=== PATIENT | male | born 1960 | race Caucasian/White ===

== ENCOUNTER 2019-02-02 17:33 | Emergency (ER) | payer BC ==
--- NOTE | 2019-02-02 17:40 | PDOC ---
Rapid Medical Evaluation Medical Evaluation: I have performed a brief in-person evaluation of this patient. The patient presents with a chief complaint of: sent by PCP for facial asymmetry ; states was initially noted by his eye doctor yesterday on eval for his glaucoma; saw PCP today and was referred here; patient not sure when the asymmetry initially presented; denies numbness/tingling/weakness of extremies Pertinent physical exam findings: +slight R facial droop, forehead spared, no other gross focal deficits noted I have ordered the following: Labs, CT head The patient will proceed to the ED for further evaluation. 02/02/19 17:35
[2019-02-02 17:41] VITALS: BP 158/81; PULSE 85; TEMP 98; BMI 30.2
[2019-02-02 18:09] LABS: BASO % 0.4 % (0-2.0); EOS % 4.6 % (0-4.5); HEMATOCRIT 45.1 % (35.4-49); HEMOGLOBIN 16.1 GM/dL (11.7-16.9); LYMPH % 36.3 % (8-40); MCH 31.4 pg (25.7-33.7); MCHC 35.6 g/dl (32.0-35.9); MEAN PLT VOLUME 8.3 fl (7.5-11.1); MONO % 9.9 % (3.8-10.2); NEUT % 48.8 % (42.8-82.8); PLATELET COUNT 214 K/MM3 (134-434); RBC 5.13 M/mm3 (4.00-5.60); RDW 13.2 % (11.9-15.9)
[2019-02-02 18:35] LABS: ANION GAP 8 MMOL/L (8-16); BLOOD UREA NITROGEN 18 mg/dL (7-18); CALCIUM 8.9 mg/dL (8.5-10.1); CHLORIDE 101 mmol/L (98-107); CO2 28 mmol/L (21-32); GLUCOSE,RANDOM 103 mg/dL (74-106); POTASSIUM 4.3 mmol/L (3.5-5.1); SODIUM 136 mmol/L (136-145)
--- NOTE | 2019-02-02 19:50 | PDOC ---
Attending Attestation - HPI HPI: 02/02/19 20:14 The patient is a 58 YOM with a PMH of HTN and HLD who presents sent in by his PCP for evaluation of right sided facial drooping. Patient states he saw an eye doctor and was told he should see his PCP for evaluation of right facial droop. He also admits to an occasional tingling sensation on his right cheek. Patient also notes he has TMJ. He has had multiple injuries and trauma to his face early in life. Patient went in and saw his PCP who then told him to come to the ER. As per at bedside, patient has always had an asymmetric smile. Patient has no other complaints. The patient denies any numbness/tingling/weakness, difficulty walking, vision changes, chest pain, shortness of breath, headache and dizziness. Denies fever, chills, nausea, vomit, diarrhea and constipation. Denies dysuria, frequency, urgency and hematuria. Allergies: NKA Past surgical history: Social history: No reported PCP: Dr. Abelino Fairchild - Physicial Exam PE: 02/02/19 20:19 Agrees with resident's exam. <Kailyn Weiner - Last Filed: 02/02/19 20:38> - Resident Resident Name: Yulissa Valente - ED Attending Attestation I have performed the following: I have examined & evaluated the patient, The case was reviewed & discussed with the resident, I agree w/resident's findings & plan - Medical Decision Making 02/02/19 20:51 58-year-old male for evaluation of right-sided facial droop According to patient's family as well as patient he has had no noticeable change and has had an uneven smile for many years He is currently asymptomatic otherwise CT scan of the brain shows no acute findings EKG is sinus rhythm Patient will be discharged home with referral to neurology though based on exam 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
--- NOTE | 2019-02-02 19:52 | PDOC ---
History of Present Illness - General Chief Complaint: Facial Droop Stated Complaint: SENT HIM facial droop unknown last normal Time Seen by Provider: 02/02/19 17:36 History Source: Patient Exam Limitations: No Limitations - History of Present Illness Initial Comments: 02/02/19 19:48 Pt is a 58yo M with PMH of HTN, HLD, GERD, Glaucoma sent to ED from PMD for R sided facial droop. Pt states he went to tire repairer yesterday and was told that he has slight drooping. He went to PMD today who recommended that pt come to the ED for evaluation to rule out stroke. Pt states that his says that he has always had an asymmetric smile. Pt does not seem to think that the droop is different. Denies numbness/tingling, headaches, weakness, chest pain, sob, syncope, changes in vision, abdominal pain, n/v/d, unsteady gait. Denies history of Lyme or STDs PMD: Denisha Fairchild PMH: see hpi Meds: atorvastatin, amlodipine Allergies: nkda Past History - Past Medical History Allergies/Adverse Reactions: Allergies Allergy/AdvReac Type Severity Reaction Status Date / Time No Known Allergies Allergy Verified 02/02/19 17:41 COPD: No GI Disorders: Yes HTN: Yes Hypercholesterolemia: Yes Other medical history: glaucoma - Suicide/Smoking/Psychosocial Hx Smoking History: Never smoked Information on smoking cessation initiated: No Hx Alcohol Use: No Drug/Substance Use Hx: No Review of Systems - Review of Systems Constitutional: No: Chills, Fever, Weakness HEENTM: No: Eye Pain, Blurred Vision, Recent change in vision, Cataracts Respiratory: No: Cough, Shortness of Breath Cardiac (ROS): No: Chest Pain, Lightheadedness, Palpitations, Syncope ABD/GI: No: Constipated, Diarrhea, Nausea, Rectal Bleeding, Vomiting : No: Burning, Dysuria Musculoskeletal: No: Back Pain, Joint Pain, Muscle Pain Integumentary: No: Symptoms Reported Neurological: No: Headache, Numbness, Tingling, Tremors, Weakness, Unsteady Gait , Ataxia, Dizziness *Physical Exam - Vital Signs Last Vital Signs Temp Pulse Resp BP Pulse Ox 98 F 85 19 158/81 99 02/02/19 17:37 02/02/19 17:37 02/02/19 17:37 02/02/19 17:37 02/02/19 17:37 - Physical Exam General Appearance: Yes: Nourished, Appropriately Dressed. No: Apparent Distress HEENT: positive: EOMI, HAO, Normal ENT Inspection, Other (slight R mouth corner drooping No eyelid drooping. ) Neck: positive: Trachea midline, Supple. negative: Carotid bruit, Lymphadenopathy (R), Lymphadenopathy (L) Respiratory/Chest: positive: Lungs Clear, Normal Breath Sounds. negative: Crackles, Rales, Rhonchi, Stridor, Wheezing Cardiovascular: positive: Regular Rhythm, Regular Rate, S1, S2. negative: Edema , JVD, Murmur Vascular Pulses: Carotid (R): 2+, Carotid (L): 2+, Dorsalis-Pedis (R): 2+, Doralis-Pedis (L): 2+ Gastrointestinal/Abdominal: positive: Normal Bowel Sounds, Soft. negative: Tender Musculoskeletal: negative: CVA Tenderness Extremity: positive: Normal Capillary Refill, Pelvis Stable. 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 negative: Numbness, Sensory Deficit Moderate Sedation - Procedure Monitoring Vital Signs: Procedure Monitoring Vital Signs Temperature 98 F 02/02/19 17:37 Pulse Rate 85 02/02/19 17:37 Respiratory Rate 19 02/02/19 17:37 Blood Pressure 158/81 02/02/19 17:37 O2 Sat by Pulse Oximetry (%) 99 02/02/19 17:37 ED Treatment Course - LABORATORY CBC & Chemistry Diagram: 02/02/19 17:57 02/02/19 17:57 - ADDITIONAL ORDERS Additional order review: Laboratory Results 02/02/19 17:57 Sodium 136 Potassium 4.3 Chloride 101 Carbon Dioxide 28 Anion Gap 8 BUN 18 Creatinine 1.0 Creat Clearance w eGFR 77.30 Random Glucose 103 Calcium 8.9 02/02/19 17:57 RBC 5.13 MCV 88.0 MCHC 35.6 RDW 13.2 MPV 8.3 Neutrophils % 48.8 Lymphocytes % 36.3 Monocytes % 9.9 Eosinophils % 4.6 H Basophils % 0.4 Medical Decision Making - Medical Decision Making 02/02/19 19:51 Pt is a 58yo M with PMH of HTN, HLD, GERD, Glaucoma sent to ED from PMD for R sided facial droop. Pt states he went to tire repairer yesterday and was told that he has slight drooping. He went to PMD today who recommended that pt come to the ED for evaluation to rule out stroke. Pt states that his says that he has always had an asymmetric smile. Pt does not seem to think that the droop is different. Denies numbness/tingling, headaches, weakness, chest pain, sob, syncope, changes in vision, abdominal pain, n/v/d, unsteady gait. Denies history of Lyme or STDs Vitals: wnl PE: wnl, slight R sided mouth droop. normal neurological exam, no eyelid drooping, no excess saliva, normal cranial nerves Ddx includes but not limited to cva/tia, cummins's palsy, asymmetry labs, ct ordered by rme. wnl CT does not show infarct or bleed or midline shift ekg nsr. no benigno or depressions, no t wave inversions. pt is stable, did not notice drooping himself. per , he has had it. will dc home, given neuro f/u. 02/02/19 22:27 *DC/Admit/Observation/Transfer Diagnosis at time of Disposition: Facial droop - Discharge Dispostion Disposition: HOME Condition at time of disposition: Good Decision to Admit order: No - Referrals Referrals: Abelino Fairchild MD [Primary Care Provider] - Danyel Edgar MD [Staff Physician] - - Patient Instructions Additional Instructions: You were seen in the emergency room today for facial droop. The lab work is normal and the CT of the head was normal. I recommend that you see a neurologist. Dr. Edgar Come back to the emergency room if you have numbness, have weakness in your arms or legs, you pass out or if any new concerning symptom develops. Thank you - Post Discharge Activity
--- NOTE | 2019-02-03 10:59 | EKG ---
Test Reason : Blood Pressure : / mmHG Vent. Rate : 084 BPM Atrial Rate : 084 BPM P-R Int : 146 ms QRS Dur : 082 ms QT Int : 366 ms P-R-T Axes : 058 005 039 degrees QTc Int : 432 ms NORMAL SINUS RHYTHM NORMAL ECG NO PREVIOUS ECGS AVAILABLE Confirmed by ETHAN REYES MD ([id number]) on 02/03/2019 10:59:12 AM Referred By: Confirmed By:ETHAN REYES MD
== END 2019-02-02 20:59 | disposition home or self-care (01) ==
LOC: JER 17:33
DX: R29.810 Facial weakness (principal); I10 Essential (primary) hypertension; E78.5 Hyperlipidemia, unspecified; K21.9 Gastro-esophageal reflux disease without esophagitis
CPT/HCPCS: 36415; 70450-TC; 80048; 85025; 93005; 93010; 99283-25

== ENCOUNTER 2025-05-23 07:37 | Day surgery (SDC) | payer BC ==
[2025-05-22 15:19] VITALS: BMI 27.4
[2025-05-23 11:04] VITALS: TEMP 97.5
[2025-05-23 12:16] VITALS: PULSE 63; RESP 17
[2025-05-23 12:22] VITALS: BP 123/62
== END 2025-05-23 12:00 | disposition home or self-care (01) ==
LOC: JASU-ENDO 07:37
PROVIDERS: ATTEND Internal Medicine Gastroenterology
PROC: 0DBN8ZX Excision of Sigmoid Colon, Via Natural or Artificial Opening Endoscopic, Diagnostic (ICD-10-PCS; principal; 2025-05-23 10:00)
DX: Z12.11 Encounter for screening for malignant neoplasm of colon (principal); D12.5 Benign neoplasm of sigmoid colon; K64.8 Other hemorrhoids
CPT/HCPCS: 88305-TC